=== PATIENT | male | born 1940 | race Caucasian/White ===

== ENCOUNTER 2018-01-14 05:02 | Inpatient (IN) | payer MEDICARE ==
[~2018-01-14] VITALS: Ht 177.8 cm; Wt 109.0 kg
[2018-01-14] MEDS ORDERED: nitroGLYCERIN 0.4mg/hour patch TD ONE (06:40)
[2018-01-14] MEDS ORDERED: APIX5TAB3 PO (07:05)
[2018-01-14] MEDS ORDERED: MULT-1085 PO (07:05)
[2018-01-14] MEDS ORDERED: METO-467 PO (07:05)
[2018-01-14] MEDS ORDERED: ATOR20TA PO (07:05)
[2018-01-14 09:30] VITALS: BP 131/54
[2018-01-14 11:00] VITALS: BP 114/56
[2018-01-14] MEDS ORDERED: morphine 2 MG/ML inj. syringe IV PRN ×2 (11:10)
[2018-01-14] MEDS ORDERED: magnesium Cl slow-release 64mg tablet PO PRN (11:10)
[2018-01-14] MEDS ORDERED: magnesium hydroxide 30ml (MOM) UD suspension PO PRN (11:10)
[2018-01-14] MEDS: K and/or MAG REPLACEMENT MC SCH (11:10)
[2018-01-14] MEDS ORDERED: ondansetron/PF 4mg/2ml inj IV PRN (11:10)
[2018-01-14] MEDS ORDERED: magnesium 1gm/100ml D5W IVPB 100 ML IV PRN (11:10)
[2018-01-14] MEDS ORDERED: acetaminophen 325mg tablet PO PRN (11:10)
[2018-01-14] MEDS ORDERED: diphenhydrAMINE 25mg capsule PO PRN (11:10)
[2018-01-14] MEDS ORDERED: potassium Cl 20 mEq SR tablet PO PRN ×2 (11:10)
[2018-01-14] MEDS ORDERED: HYDROcodone/acetaminophen 10/325mg tab PO PRN (11:10)
[2018-01-14] MEDS ORDERED: potassium Cl 40MEQ/NS 500ml 500 ML IV PRN ×2 (11:10)
[2018-01-14] MEDS ORDERED: mag hydrox/Alum hydrox/simeth 30ml oral suspension PO PRN (11:10)
[2018-01-14] MEDS ORDERED: magnesium 4gm in 100ml NS 100 ML IV PRN (11:10)
[2018-01-14] MEDS ORDERED: HYDROcodone/acetaminophen 5mg/325mg tablet PO PRN (11:10)
[2018-01-14] MEDS: digoxin 125mcg (0.125mg) tablet PO SCH (11:15)
[2018-01-14 11:46] LABS: HEMOGLOBIN A1C 6.2 % (4.5-6.2)
[2018-01-14 11:55] LABS: TROPONIN I 0.3 NG/ML (0.0-0.05)
[2018-01-14] MEDS: normal saline 1000ml 1,000 ML IV SCH (12:00)
[2018-01-14] MEDS ORDERED: heparin 10,000 units/1 ML INJ IV PRN (12:40)
[2018-01-14] MEDS ORDERED: heparin 10,000 units/1 ML INJ IV ONE (12:40)
[2018-01-14 13:28] LABS: EOSINOPHILS % (AUTO) 3.2 % (0-6); HEMOGLOBIN 11.5 g/dl (14.0-17.9); LYMPHOCYTES % (AUTO) 22.7 % (21-51); MEAN CORPUSCULAR HEMOGLOBIN 28.1 PG (27.0-31.0); MEAN CORPUSCULAR VOLUME 82.7 FL (78-98); MEAN PLATELET VOLUME 8.4 FL (7.4-10.4); MONOCYTES % (AUTO) 10.7 % (2-12); NEUTROPHILS % (AUTO) 62.4 % (42-75); PLATELET COUNT 176 X10'3 (140-440); RED BLOOD COUNT 4.11 X10'6 (4.70-6.10); RED CELL DISTRIBUTION WIDTH 16.7 % (11.5-14.5)
[2018-01-14 13:29] LABS: BASOPHILS # (AUTO) 0.1 X10'3 (0-0.2); EOSINOPHILS # (AUTO) 0.2 X10'3 (0-0.9); LYMPHOCYTES # (AUTO) 1.4 X10'3 (1.1-4.8); MONOCYTES # (AUTO) 0.6 X10'3 (0-0.9); NEUTROPHILS # (AUTO) 3.7 X10'3 (1.8-7.7)
[2018-01-14 13:31] LABS: PARTIAL THROMBOPLASTIN TIME 28 SECONDS (22-32); PROTHROMBIN TIME 10.8 SECONDS (9.0-12.0)
[2018-01-14 18:00] VITALS: BP 126/63
[2018-01-14] MEDS ORDERED: nitroGLYCERIN 0.4mg SUBLingual tab SL PRN (19:05)
[2018-01-14] MEDS ORDERED: metoprolol tartrate 1mg/ml inj IV PRN (19:05)
[2018-01-14] MEDS ORDERED: CAFFEINE CITRATE 60 MG/3 ML injection vial IV PRN (19:05)
[2018-01-14] MEDS ORDERED: regadenoson 0.4mg/5ml syringe IV PRN (19:05)
[2018-01-14 19:08] VITALS: BP 113/69
[2018-01-14] MEDS: metoprolol tartrate 50mg tablet PO SCH (19:09)
[2018-01-14] MEDS ORDERED: apixaban 5mg tablet PO SCH (20:00)
[2018-01-14 21:03] LABS: CLARITY,URINE CLEAR (Clear); COLOR,URINE YELLOW (Yellow); GLUCOSE, URINE NEGATIVE (Neg); KETONES,URINE NEGATIVE (Neg); LEUKOCYTE ESTERASE ,URINE NEGATIVE (Neg); NITRITES, URINE NEGATIVE (Neg); OCCULT BLOOD,URINE NEGATIVE (Neg); PROTEIN,URINE NEGATIVE (Neg); UROBILINOGEN,URINE 0.2 E.U/dL (0.2-1.0)
[2018-01-14 21:07] LABS: UA COLLECTION TYPE NON-SPECIFIED
[2018-01-15] VITALS (10 sets, daily range): BP systolic 110–167; BP diastolic 53–86
[2018-01-15] MEDS: normal saline 1000ml 1,000 ML IV SCH ×2 (00:28→03:57)
[2018-01-15 06:25] LABS: ALANINE AMINOTRANSFERASE 28 U/L (12-78); ALBUMIN/GLOBULIN RATIO 0.9 (1.1-1.5); ALKALINE PHOSPHATASE 64 IU/L (46-116); ANION GAP 8 (8-16); ASPARTATE AMINO TRANSFERASE 22 U/L (10-37); BILIRUBIN,TOTAL 0.4 MG/DL (0.1-1.0); BLOOD UREA NITROGEN 19 MG/DL (7-18); BUN/CREATININE RATIO 16.4 (5.4-32.0); CALCIUM 8.2 MG/DL (8.5-10.1); CHLORIDE 108 MMOL/L (99-107); CHOL/HDL RATIO 3.6 (0.00-4.99); CHOLESTEROL 118 MG/DL (0-200); CREATININE 1.16 MG/DL (0.60-1.10); GLUCOSE 101 MG/DL (70-104); HDL CHOLESTEROL 33 MG/DL (35-60); LDL CHOLESTEROL 75 MG/DL (50-100); MAGNESIUM 1.9 MG/DL (1.5-2.4); PHOSPHORUS 3.2 MG/DL (2.3-4.5); POTASSIUM 4.1 MMOL/L (3.5-5.1); SODIUM 143 MMOL/L (135-145); TOTAL CARBON DIOXIDE 27.2 MMOL/L (24-32); TOTAL PROTEIN 6.2 G/DL (6.4-8.2); TRIGLYCERIDES 114 MG/DL (20-135); eGFR 61 ML/MIN
[2018-01-15 07:29] LABS: HEMATOCRIT 32.5 % (42.0-52.0); HEMOGLOBIN 10.9 g/dl (14.0-17.9); RED BLOOD COUNT 3.95 X10'6 (4.70-6.10); WHITE BLOOD COUNT 5.9 X10'3 (4.5-11.0)
[2018-01-15 07:30] LABS: BASOPHILS % (AUTO) 0.7 % (0-1); EOSINOPHILS % (AUTO) 3.9 % (0-6); LYMPHOCYTES % (AUTO) 19.9 % (21-51); MEAN CORPUSCULAR HEMOGLOBIN 27.5 PG (27.0-31.0); MEAN CORPUSCULAR HGB CONC 33.4 % (33.0-36.5); MEAN CORPUSCULAR VOLUME 82.3 FL (78-98); MEAN PLATELET VOLUME 8.8 FL (7.4-10.4); MONOCYTES % (AUTO) 9.2 % (2-12); NEUTROPHILS % (AUTO) 66.3 % (42-75); PLATELET COUNT 165 X10'3 (140-440); RED CELL DISTRIBUTION WIDTH 16.4 % (11.5-14.5)
[2018-01-15 07:31] LABS: EOSINOPHILS # (AUTO) 0.2 X10'3 (0-0.9); LYMPHOCYTES # (AUTO) 1.2 X10'3 (1.1-4.8); MONOCYTES # (AUTO) 0.5 X10'3 (0-0.9)
[2018-01-15] MEDS: metoprolol tartrate 50mg tablet PO SCH (07:51)
[2018-01-15] MEDS: digoxin 125mcg (0.125mg) tablet PO SCH (07:54)
[2018-01-15] MEDS: K and/or MAG REPLACEMENT MC SCH (08:00)
[2018-01-15] MEDS ORDERED: atorvastatin 20mg tablet PO SCH (08:00)
[2018-01-15] MEDS ORDERED: regadenoson 0.4mg/5ml syringe IV ONE (10:49)
[2018-01-15] MEDS ORDERED: CAFFEINE CITRATE 60 MG/3 ML injection vial IV ONE (10:49)
[2018-01-15] MEDS ORDERED: DIGO125T5 PO (13:31)
== END 2018-01-15 16:18 | disposition home or self-care (01) | DRG 282 ==
LOC: ER 05:04 → ED HOLD 07:30 → SUR 3N 09:08
PROVIDERS: ADMIT Family Medicine; ATTEND Family Medicine
PROC: 4A02XM4 Measurement of Cardiac Total Activity, External Approach (ICD-10-PCS; principal; 2018-01-15)
PROC: 3E033HZ Introduction of Radioactive Substance into Peripheral Vein, Percutaneous Approach (ICD-10-PCS; 2018-01-15)
DX: I48.0 Paroxysmal atrial fibrillation (principal); I21.A1 Myocardial infarction type 2; E78.5 Hyperlipidemia, unspecified; R07.89 Other chest pain; I10 Essential (primary) hypertension; I25.10 Atherosclerotic heart disease of native coronary artery without angina pectoris; Z96.641 Presence of right artificial hip joint; Z95.1 Presence of aortocoronary bypass graft; Z80.8 Family history of malignant neoplasm of other organs or systems; Z82.49 Family history of ischemic heart disease and other diseases of the circulatory system
CPT/HCPCS: 36415; 78452; 80053; 80061; 80162; 81003; 83036; 83735; 84100; 84484; 85025; 85610; 85730; 87070; 93017; 93306; 99285; A9500; J1644; J7030